=== PATIENT | male | born 1965 ===

== ENCOUNTER 2018-12-13 07:21 | Day surgery (SDC) | payer OTHER ==
[~2018-12-13] VITALS: Ht 175.3 cm; Wt 81.3 kg
[~2018-12-13 07:21] MED LIST: BACITRACIN 50,000 UNIT ONE; BUPIVACAINE/PF 0.5% ONE; EPINEPHRINE 1 MG/ML, 1ML ONE; THROMBIN 5,000 UNIT VIAL TP ONE; VANCOMYCIN 1,000 MG ONE
[2018-12-13] MEDS ORDERED: LACTATED RINGERS 1,000 ML IV SCH (07:39)
[2018-12-13 07:41] VITALS: BP 119/70
[2018-12-13] MEDS ORDERED: PLEASE ENTER HEIGHT AND WEIGHT MC SCH (08:00)
[2018-12-13] MEDS ORDERED: GABAPENTIN 300 MG CAPSULE PO ONE (08:00)
[2018-12-13] MEDS ORDERED: ACETAMINOPHEN 500 MG TABLET PO ONE (08:00)
[2018-12-13] MEDS ORDERED: CALC0.25 PO (08:08)
[2018-12-13] MEDS ORDERED: KETO10TA PO (08:08)
[2018-12-13] MEDS ORDERED: METF500T17 PO (08:08)
[2018-12-13] MEDS ORDERED: LEVO175T5 PO (08:08)
[2018-12-13] MEDS ORDERED: GLIP5TAB10 PO (08:08)
[2018-12-13] MEDS ORDERED: LISI-170 PO (08:08)
[2018-12-13] MEDS ORDERED: FAMO20TA7 PO (08:08)
[2018-12-13 08:22] LABS: MICROSCOPIC AUTO
[2018-12-13 08:23] LABS: CULTURE INDICATED? NO
[2018-12-13 08:28] LABS: BASOPHILS # (AUTO) 0.05 x10^3/uL (0-0.1); BASOPHILS % (AUTO) 1 % (0-1); EOSINOPHILS # (AUTO) 0.31 x10^3/uL (0-0.4); EOSINOPHILS % (AUTO) 5 % (1-7); LYMPHOCYTES % (AUTO) 19 % (22-44); MD NO; MEAN CORPUSCULAR HEMOGLOBIN 26.7 pg (27.5-34.5); MEAN CORPUSCULAR HGB CONC 32.4 g/dL (33.2-36.2); MEAN CORPUSCULAR VOLUME 82.3 fL (81-97); MEAN PLATELET VOLUME 8.3 fL (7.4-10.4); MONOCYTES # (AUTO) 0.52 x10^3/uL (0.2-0.8); MONOCYTES % (AUTO) 9 % (2-9); NEUTROPHILS # (AUTO) 3.91 x10^3/uL (1.8-6.8); NEUTROPHILS % (AUTO) 66 % (42-75); PLATELET COUNT 252 x10^3/uL (130-400); RED CELL DISTRIBUTION WIDTH 14.5 % (9.4-14.8)
[2018-12-13 08:33] LABS: INTERNATIONAL NORMALIZED RATIO 1.02 (0.93-1.1); PROTHROMBIN TIME 10.7 Seconds (9.6-11.5)
[2018-12-13 08:34] LABS: ANION GAP 7 mmol/L (5-15); CALCIUM 8.1 mg/dL (8.5-10.1); CHLORIDE 110 mmol/L (98-107); CREATININE 1.22 mg/dL (0.7-1.3)
[2018-12-13] MEDS ORDERED: MIDAZOLAM 1 MG/ML, 2ML ONE (09:02)
[2018-12-13] MEDS ORDERED: FENTANYL PF 250 MCG/5ML ONE (09:02)
[2018-12-13] MEDS ORDERED: CEFAZOLIN 1,000 MG ONE (09:06)
[2018-12-13] MEDS ORDERED: NEOSTIGMINE 1 MG/ML, 10ML ONE (09:06)
[2018-12-13] MEDS ORDERED: ROCURONIUM 10MG/ML,5ML ONE (09:06)
[2018-12-13] MEDS ORDERED: PROPOFOL 10 MG/ML, 20ML ONE (09:06)
[2018-12-13] MEDS ORDERED: GLYCOPYRROLATE 0.2MG/1ML, 5ML ONE (09:06)
[2018-12-13] MEDS ORDERED: PHENYLEPHRINE 10 MG/ML ONE (12:00)
[2018-12-13] MEDS ORDERED: LABETALOL 5MG/ML, 20ML IV PRN (12:00)
[2018-12-13] MEDS ORDERED: OXYcodone 5 MG/5 ML ORAL.SOL UDC PO PRN (12:00)
[2018-12-13] MEDS ORDERED: ONDANSETRON 2MG/ML, 2ML IV PRN (12:00)
[2018-12-13] MEDS ORDERED: HYDROmorphone 2 MG/ML, 1ML IVPush PRN (12:00)
[2018-12-13] MEDS ORDERED: FENTANYL PF 100 MCG/2ML IV PRN (12:00)
[2018-12-13] MEDS ORDERED: MORPHINE SULFATE 4 MG/ML, 1ML IVPush PRN (12:00)
[2018-12-13] MEDS ORDERED: hydrALAzine 20 MG/ML, 1ML IV PRN (12:00)
[2018-12-13] MEDS ORDERED: MEPERIDINE/PF 25MG/ML,1ML IVPush PRN (12:00)
[2018-12-13] MEDS ORDERED: SUGAMMADEX 200 MG/2 ML IVPush ONE (13:00)
== END 2018-12-13 16:38 | disposition home or self-care (01) ==
LOC: OUT 07:21
PROVIDERS: ATTEND Neurological Surgery
DX: M51.16 Intervertebral disc disorders with radiculopathy, lumbar region (principal); M48.061 Spinal stenosis, lumbar region without neurogenic claudication; M21.372 Foot drop, left foot; I10 Essential (primary) hypertension; K21.9 Gastro-esophageal reflux disease without esophagitis; E11.9 Type 2 diabetes mellitus without complications; E89.0 Postprocedural hypothyroidism; Z79.84 Long term (current) use of oral hypoglycemic drugs; Z79.01 Long term (current) use of anticoagulants; Z79.890 Hormone replacement therapy; Z79.899 Other long term (current) drug therapy; Z85.528 Personal history of other malignant neoplasm of kidney; Z88.5 Allergy status to narcotic agent; Z90.49 Acquired absence of other specified parts of digestive tract; Z98.890 Other specified postprocedural states; Z83.3 Family history of diabetes mellitus
CPT/HCPCS: 36415; 63030; 72100; 80048; 81001; 85025; 85610; 85730; 93005; J0171; J0690; J2250; J2370; J2704; J2710; J3010; J3370; J7120